=== PATIENT | male | born 1995 | race Caucasian/White ===

== ENCOUNTER 2017-03-02 16:32 | Emergency (ER) | payer BC ==
[~2017-03-02] VITALS: Ht 182.9 cm; Wt 80.6 kg
[2017-03-02 16:42] VITALS: TEMP 36.8; Ht 182.9 cm; Wt 80.6 kg
[2017-03-02] MEDS ORDERED: PRED10TA PO (17:08)
[2017-03-02] MEDS ORDERED: DIPH25CA65 PO (17:15)
[2017-03-02] MEDS ORDERED: ZNTT/150 PO (17:15)
[2017-03-02 17:41] VITALS: BP 111/71; PULSE 67; O2SAT 98
--- NOTE | 2017-03-02 23:33 | EMERGENCY ROOM VISIT NOTE ---
ED Visit Note First contact with patient: 17:01 CHIEF COMPLAINT: Rash. HISTORY OF PRESENT ILLNESS: Mr. Turner 's a 21-year-old white male who ambulates into the ED complaining of rash over the anterior aspect of his bilateral forearms. Patient reports 7 days ago he started noticing a rash on his left forearm. He reports initially it was mild and slightly red. He reports he noted small bumps on the arm that was yellowish in color. Over the last 7 days it has gradually increased and is encompassing more the forearm and has spread to the right forearm. He does not know what he was exposed to that could've caused the rash. Patient reports 3 days ago he was placed on steroids and does not feel the rash is getting any better. Associated with the rash she reports she has has a burning and stinging sensation. He rates his discomfort 5/10. His pain is nonradiating. His pain worsens with palpation and itching. He has not identified any alleviating factors related to this discomfort. He has not taken any medication except for the steroids prior to arrival at the hospital. He denies any associated symptoms including fevers, chills, sweats, other rashes, other skin eruptions, per respiratory tract symptoms, cough, wheezing, shortness of breath, decreased appetite, abdominal pain, nausea, vomiting, arm weakness/numbness/tingling. REVIEW OF SYSTEMS: As noted above in History of Present Illness. 8 body systems were reviewed with the patient and found to be negative unless noted above otherwise. PMH: Status post wisdom teeth extraction. CURRENT MEDICATION: Prednisone. ALLERGIES TO MEDICATION: Patient denies. SOCIAL HISTORY: Patient is currently a university student; he feels safe in his home environment; he denies tobacco and alcohol use. PHYSICAL EXAM: Vital Signs: Date Time Temp Pulse Resp B/P (MAP) Pulse Ox O2 Delivery O2 Flow Rate FiO2 03/02/17 17:41 67 18 111/71 98 03/02/17 16:42 36.8 80 16 132/67 97 Room Air General: 21 year-old white male in mild distress due to symptoms, nontoxic- appearing, afebrile and hemodynamically stable. Neurological: Awake, alert and oriented 3. Answering questions appropriately and following commands. SKIN: There is an erythematous eruption over the bilateral forearms. There are several small patches of erythematous lesions and some with small vesicles. No lymphangitis. The skin is not hot to palpation and does not appear cellulitic. HEENT: Atraumatic and normocephalic. Airway patent. Speech normal. No involvement of the rash on the face. Lungs: Clear to auscultation and equal bilaterally with symmetrical chest wall movements. No wheezing, rales or rhonchi. ED COURSE: Patient is assessed as noted above. Patient's medication list was reviewed. Patient was educated about today's findings and instructed on his treatment plan ; he verbalizes understanding and agreement with this plan. CLINICAL IMPRESSION: Contact dermatitis. DISPOSITION: Patient discharged home in stable condition; prior to departure he was reassessed and subjectively reported he was feeling the same. PLAN: Patient was encouraged to continue steroids as prescribed until completed. Patient was encouraged use 25-50 mg of Benadryl every 6 hours as needed for itching until resolution of dermatitis. Patient was encouraged use 125 mg of Zantac every 6 hours until resolution of itching and dermatitis. Patient was encouraged use cool compresses on the area for itching. Patient was encouraged to avoid hot showers/as. Patient was encouraged to follow-up at [facility] for recheck in 3-4 days. Patient was encouraged return ED for worsening rash, fevers, increasing redness/ swelling, red streaking or any new/concerning symptoms.
== END 2017-03-02 17:48 | disposition home or self-care (01) ==
LOC: C.EDB 16:34 → C.EDD 17:48
DX: L25.9 Unspecified contact dermatitis, unspecified cause (principal)